=== PATIENT | female | born 1965 | race Caucasian/White ===

== ENCOUNTER 2016-09-06 04:12 | Emergency (ER) | payer OTHER ==
[~2016-09-06] VITALS: Ht 152.4 cm; Wt 85.0 kg
[2016-09-06 04:14] VITALS: Ht 152.4 cm; Wt 85.0 kg
[2016-09-06] MEDS ORDERED: ALBUTEROL 0.083% (NEB) 2.5 MG/3 ML AMP HHN STA (05:46)
[2016-09-06] MEDS ORDERED: IBUPROFEN 600 MG TAB PO ONE (06:00)
--- NOTE | 2016-09-06 06:13 | ERD ---
ER Documentation Chief Complaint Date/Time DATE: 09/06/16 TIME: 06:07 Chief Complaint Flu symptoms with ear ache and Lung pain HPI 51-year-old female with history of asthma and hypertension presents with chief complaint of cough, fever, and right-sided ear pain 1 week. States that cough keeps her up at night, is productive with purulent phlegm and has not responded to OTC cough medications. Associated symptoms include shortness of breath, she reports history of asthma. She denies chest pain, chills, and palpitations. Right ear pain is constant and rated a 6 out of 10 in severity. She denies hearing loss, ear discharge/bleeding, trauma. She denies sick contacts, or recent travel. ROS All systems reviewed and are negative except as per history of present illness. Medications Home Meds Active Scripts Ibuprofen* (Motrin*) 600 Mg Tab, 600 MG PO Q6, #20 TAB Prov:Magdalena Medrano PA-C 09/06/16 Azithromycin* (Zithromax*) 250 Mg Tablet, 250 MG PO .ZPACK DIRECTED, #6 TAB TAKE 500 MG (2 TABS) THE FIRST DAY THEN 250 MG (1 TAB) DAYS 2-5 Prov:Magdalena Merdano PA-C 09/06/16 Allergies Allergies: Coded Allergies: Penicillins (Unverified Allergy, Severe, HIVES AND SOB, 09/06/16) PMhx/Soc History of Surgery: Yes (C section x3 ) Anesthesia Reaction: No Hx Neurological Disorder: No Hx Respiratory Disorders: Yes (Asthma ) Hx Cardiac Disorders: Yes (HTN) Hx Psychiatric Problems: No Hx Miscellaneous Medical Probl: Yes (Thyroid problem ) Hx Alcohol Use: No Hx Substance Use: No Hx Tobacco Use: No Smoking Status: Never smoker FmHx Family History: diabetes Physical Exam Vitals Vital Signs Date Time Temp Pulse Resp B/P Pulse Ox O2 Delivery O2 Flow Rate FiO2 09/06/16 06:04 67 20 98 21 09/06/16 04:40 141/71 09/06/16 04:14 99.2 82 20 203/81 97 Physical Exam GENERAL: Non-toxic. No apparent signs of distress. HEENT: Atraumatic. Bilateral eyes are PERRL EOM intact. Normal conjunctiva, no injection. No eyelid or lower eyelid swelling noted. Ears: Right TM is erythematous and dull to light reflex, left TM is normal. No ear canal swelling. No ear discharge. Nose: no nasal discharge. Throat: Oropharynx normal. Tongue pink and moist. No tonsillar swelling or tonsillar exudates. No lymphadenopathy. LUNGS: Clear to auscultation. No accessory muscle use. No wheezing, no crackles. No signs or symptoms of respiratory distress. HEART: Regular rate and rhythm. No murmurs, clicks, rubs or gallops. EXTREMITIES: No peripheral cyanosis or edema. No focal pain or notable trauma. Full range of motion. Good capillary refill. NEURO: The patient moves all 4 extremities with 5/5 strength. Cranial nerves are grossly intact. Normal mental status for age. Good muscle tone. SKIN: There is no apparent rash, petechiae, erythema or swelling. Good skin turgor. Results 24 hrs Current Medications Medications (Trade) Dose Ordered Sig/Carlos Route PRN Reason Start Time Stop Time Status Last Admin Dose Admin Albuterol (Proventil 0.083% (Neb)) 2.5 mg ONCE STAT HHN 09/06/16 05:46 09/06/16 05:48 DC 09/06/16 06:04 Ibuprofen (Motrin) 600 mg ONCE ONCE PO 09/06/16 06:00 09/06/16 06:01 DC 09/06/16 05:52 Procedures/MDM Patient presented with complaint of severe right-sided ear pain and cough 1 week. She also reports shortness of breath and states she has a history of asthma. I ordered one breathing treatment to be administered in the ER. On examination the right TM was erythematous and dull to light reflex, there is no ear canal swelling or discharge. No tenderness to palpation of the tragus or mastoid. Symptoms are consistent with acute otitis media. I will be treated with antibiotics. However based on patient's complaint of cough and fever 1 week I have also ordered a chest x-ray to rule out pneumonia. Awaiting results of chest x-ray prior to further management. Patient given 600 mg ibuprofen for relief of ear pain. Chest x-ray: IMPRESSION: No evidence for active cardiopulmonary disease. Patient reports relief after breathing treatment. Chest x-ray shows no signs of pneumonia, I will be treating for OM alone. At this time of low suspicion for PE, pneumothorax, pneumonia, TB otitis externa , mastoiditis, and sepsis. Patient appears to be in no acute distress, she initially presented with elevated BP in triage which was likely due to pain and has since stabilized. Patient has a severe allergy to penicillin so I will be treating her with azithromycin. Patient stable for discharge and outpatient management. Advised to follow-up with PCP in 1-2 days Departure Diagnosis: Primary Impression: Cough Additional Impressions: Ear pain, right Otitis media Otitis media type: unspecified Laterality: right Chronicity: unspecified Qualified Code: H66.91 - Right otitis media, unspecified chronicity, unspecified otitis media type Condition: Magdalena Joel PA-C Sep 06, 2016 06:13
[2016-09-06] MEDS ORDERED: AZIT250T94 PO (06:36)
--- NOTE | 2016-09-06 06:38 | RADRPT ---
PROCEDURE: CHEST - 1 VIEW CLINICAL INDICATION: 51-year-old female with cough and fever. TECHNIQUE: A single frontal AP semi-erect portable view of the chest was performed. The images we re reviewed on a PACS workstation. COMPARISON: None. FINDINGS: The cardiomediastinal silhouette has a normal appearance. There is no evidence for an infiltrate. There is no evidence for congestive heart failure. There is no evidence for pneumothorax. The osseou s structures are intact. IMPRESSION: No evidence for active cardiopulmonary disease. .Selvin Singh MD, MD Date Time Electronically viewed and signed by .Selvin Singh MD, on 09/06/2016 06:37 .M/
[2016-09-06] MEDS ORDERED: IBUP-1542 PO (06:41)
[2016-09-06] MEDS ORDERED: HYDR-906 PO (06:45)
[2016-09-06] MEDS ORDERED: HYDROCODONE/APAP (5/325) TAB PO ONE (07:00)
[2016-09-06 07:04] VITALS: BP 140/70; PULSE 77; RESP 20; TEMP 98.3
== END 2016-09-06 07:05 | disposition home or self-care (01) ==
LOC: FTE 04:12
DX: R05 Cough (principal); H92.01 Otalgia, right ear; H66.91 Otitis media, unspecified, right ear; I10 Essential (primary) hypertension; J45.909 Unspecified asthma, uncomplicated
CPT/HCPCS: 71010; 94664; Z7610